=== PATIENT | male | born 1975 | race Caucasian/White ===

== ENCOUNTER → 2024-02-02 06:01 | Day surgery (SDC) | payer OTHER, SELFPAY | LOC: GI 06:01 | PROVIDERS: ATTENDING PHYSICIAN Internal Medicine Gastroenterology | DX: Z12.11 Encounter for screening for malignant neoplasm of colon (principal); K63.5 Polyp of colon; K64.8 Other hemorrhoids; Z83.719 Family history of colon polyps, unspecified | CPT/HCPCS: 45380; 88305 ==